=== PATIENT | male | born 1950 | race Caucasian/White ===

== ENCOUNTER → 2019-11-01 10:52 | Outpatient (CLI) | payer MEDICARE, SELFPAY ==
--- NOTE | ~2019-11-01 | CT_ITS ---
EXAMINATION: CT abdomen pelvis wo con DATE: 11/01/2019 11:07 INDICATION: Incisional hernia without obstruction or gangrene. TECHNIQUE: Computed tomography (CT) of the abdomen and pelvis was performed without intravenous contr ast. Automated exposure control and iterative reconstruction technique were employed. The dose-length product was 1126.50 mGy-cm. COMPARISON: None. FINDINGS: The visualized portions of the lung bases demonstrate mild atelectasis. Calcified right hil ar lymph nodes are consistent with old granulomatous disease. No pleural effusion. The heart size is normal. No pericardial effusion. There are coronary artery calcifications. There is diffuse hepatic s teatosis. The gallbladder, pancreas, adrenal glands, and kidneys are normal. There is no urolithiasis . Calcifications in the spleen are consistent with old granulomatous disease. The prostate is moderat aliyah enlarged. Symmetric prominent fat in the inguinal canals may be small hernias. There is an anasto mosis in the rectosigmoid. There are no dilated loops of bowel. There is an infraumbilical ventral he rnia to the right of midline containing nonobstructed small bowel. There are multiple ventral hernias containing fat superior and inferior to the umbilicus. There is a lipoma in the left iliacus muscle. There are no pathologically enlarged lymph nodes. There is no free intraperitoneal fluid. There are scattered benign bone islands. There is moderate lumbar spondylosis. IMPRESSION: 1. Infraumbilical ventral hernia containing nonobstructed small bowel. 2. Multiple supraumbilical and infraumbilical ventral hernias containing fat. Reviewed, dictated and finalized at location A.
== END ==
PROVIDERS: PCP Family Medicine; Visit Provider Surgery
DX: K43.2 Incisional hernia without obstruction or gangrene (principal); K42.9 Umbilical hernia without obstruction or gangrene; K43.9 Ventral hernia without obstruction or gangrene
CPT/HCPCS: 74176

== ENCOUNTER 2019-12-05 12:07 | Outpatient (CLI) | payer MEDICARE, SELFPAY ==
--- NOTE | 2019-12-05 13:11 | ECG_ITS ---
Measurements Intervals [place] Rate: 59 P: 46 GA: 193 QRS: 15 QRSD: 109 T: 39 QT: 416 QTc: 415 Interpretive Statements SINUS BRADYCARDIA POOR R WAVE PROGRESSION, ANTERIOR LEADS BORDERLINE ECG Electronically Signed On 12-05-2019 13:21:55 CDT by Lauro Suarez D.O.
[2019-12-05 14:05] LABS: Anion Gap 9 mmol/L (8-16); Blood Urea Nitrogen 26 mg/dL (9-20); Carbon Dioxide 27 mmol/L (22-30); Chloride 102 mmol/L (98-107); Estimated Glomerular Filt Rate 50; Glucose 104 mg/dL (75-110); Potassium 4.1 mmol/L (3.4-5.0); Sodium 138 mmol/L (137-145)
== END 2019-12-05 12:08 | disposition home or self-care (01) ==
LOC: ANHSURGERY 12:08
PROVIDERS: Anesthesiology; PCP Family Medicine; Visit Provider Surgery
DX: Z01.818 Encounter for other preprocedural examination (principal); I10 Essential (primary) hypertension
CPT/HCPCS: 36415; 80048; 93005

== ENCOUNTER 2021-06-05 11:12 | Outpatient (CLI) | payer MEDICARE, SELFPAY ==
--- NOTE | ~2021-06-05 | XR_ITS ---
EXAMINATION: XR chest 2V DATE: 06/05/2021 11:36 INDICATION: One month of cough and congestion TECHNIQUE: PA and lateral views of the chest were obtained. COMPARISON: CT abdomen pelvis dated 11/11/2019 FINDINGS: Minimal biapical pleural-parenchymal scarring. Persistent mild linear atelectasis/scarring at the pos terior left lower lobe. No new airspace opacities, pulmonary edema, pleural effusion or pneumothorax. Heart size is normal. Small left paracardial fat pad. Mild thoracic spondylosis. IMPRESSION: 1. Mild left lower lobar linear discoid atelectasis/scarring. No other acute cardiopulmonary disease. Reviewed, dictated and finalized at location A. 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 Mild left lower lobar linear discoid atelectasis/scarring. No other acute ca rdiopulmonary disease.
== END 2021-06-05 11:13 | disposition home or self-care (01) ==
PROVIDERS: PCP Family Medicine; Visit Provider Nurse Practitioner Gerontology
DX: R05.9 Cough, unspecified (principal); R91.8 Other nonspecific abnormal finding of lung field
CPT/HCPCS: 71046